=== PATIENT | male | born 1980 | race African-American/Black ===

== ENCOUNTER 2017-06-14 14:02 | Emergency (ER) | payer MEDICAID ==
[~2017-06-14] VITALS: Ht 177.8 cm; Wt 68.0 kg
[2017-06-14] MEDS ORDERED: KETOROLAC 30MG/ML VIAL IM ONE (16:30)
[2017-06-14] MEDS ORDERED: TRAMADOL 50MG TABLET PO ONE (16:30)
[2017-06-14 16:33] VITALS: BP 128/78
== END 2017-06-14 18:44 | disposition left against medical advice (07) ==
LOC: ER 14:02
DX: M25.551 Pain in right hip (principal); M79.1 Myalgia; M54.5 Low back pain; R07.9 Chest pain, unspecified; R51 Headache; F17.200 Nicotine dependence, unspecified, uncomplicated; R56.9 Unspecified convulsions
CPT/HCPCS: 71111; 73502; 96372; 99284; J1885

== ENCOUNTER 2017-12-04 12:59 | Emergency (ER) | payer MEDICAID ==
[~2017-12-04] VITALS: Ht 177.8 cm; Wt 68.0 kg
[2017-12-04 13:53] VITALS: BP 103/82
[2017-12-04] MEDS ORDERED: TETANUS, DIPHTHERIA, PERTUSSIS VAC/PF 0.5ML (>7YR OLD) IM ONE (14:00)
[2017-12-04] MEDS ORDERED: BACITRACIN ZINC OINT UDPKT TOP ONE (14:00)
[2017-12-04] MEDS ORDERED: LIDOCAINE HCL 1% 20ML VIAL (Pyxis) INJ MC ONE (14:00)
== END 2017-12-04 15:52 | disposition left against medical advice (07) ==
LOC: ER 12:59
DX: S61.217A Laceration without foreign body of left little finger without damage to nail, initial encounter (principal); Y93.89 Activity, other specified; W22.09XA Striking against other stationary object, initial encounter; Y92.89 Other specified places as the place of occurrence of the external cause; F17.200 Nicotine dependence, unspecified, uncomplicated; Y99.8 Other external cause status
CPT/HCPCS: 73140; 90471; 90715; 99284; J3490; X7700; Z7610

== ENCOUNTER 2022-02-17 17:03 | Emergency (ER) | payer MEDICAID, MEDICARE ==
[~2022-02-17] VITALS: Ht 172.7 cm; Wt 70.0 kg
[2022-02-17] MEDS ORDERED: ONDANSETRON HCL 4MG/2ML INJ IV ONE (17:45)
[2022-02-17] MEDS ORDERED: PANTOPRAZOLE SODIUM 40 MG/VIAL IV ONE (17:45)
[2022-02-17] MEDS ORDERED: MAGNESIUM/ALUMINUM HYDROXIDE/SIMETHICONE 30ML UDC PO ONE (17:45)
[2022-02-17] MEDS ORDERED: SODIUM CHLORIDE 0.9% 1,000 ML IV ONE (17:45)
[2022-02-17] MEDS ORDERED: VISCOUS LIDOCAINE 2% 15 ML UDC MM ONE (17:45)
[2022-02-17 17:52] LABS: CLARITY URINE CLEAR (CLEAR); COLOR URINE YELLOW (YELLOW); KETONES URINE TRACE (NEGATIVE); LEUKOCYTE ESTERASE URINE NEGATIVE (NEGATIVE); NITRITE URINE NEGATIVE (NEGATIVE); OCCULT BLOOD URINE NEGATIVE (NEGATIVE); PH URINE 6.5 (4.5-8.0); PROTEIN URINE TRACE (NEGATIVE); SPECIFIC GRAVITY URINE 1.022 (1.005-1.030); UROBILINOGEN URINE 0.2 E.U./dL (0.2-1.0)
[2022-02-17 17:52] LABS: BASOPHILS % 0.6 % (0.0-2.0); EOSINOPHILS % 0.5 % (0.0-5.0); HEMATOCRIT. 46.6 % (42.0-52.0); HEMOGLOBIN. 15.3 g/dL (14.0-18.0); LYMPHOCYTES % 13.3 % (20.0-50.0); MEAN CORPUSCULAR HEMOGLOBIN 27.5 pg (28.0-32.0); MEAN CORPUSCULAR VOLUME 83.8 fL (80.0-94.0); MEAN PLATELET VOLUME 7.8 fl (7.4-10.4); MONOCYTES % 9.3 % (2.0-8.0); NEUTROPHILS % 76.3 % (40.0-76.0); PLATELET 311 x1000/uL (130-400); RED BLOOD CELL COUNT 5.57 mill/uL (4.7-6.1); RED CELL DISTRIBUTION WIDTH 14.9 % (11.6-14.6)
[2022-02-17 17:56] LABS: CHLORIDE 102 mEq/L (98-107)
[2022-02-17 18:04] LABS: ETHANOL BLOOD < 10 mg/dL
[2022-02-17 18:05] LABS: *AMPHETAMINES SCREEN URINE NEGATIVE (NEGATIVE); *BARBITURATES SCREEN URINE NEGATIVE (NEGATIVE); *BENZODIAZEPINES SCREEN URINE NEGATIVE (NEGATIVE); *COCAINE SCREEN URINE NEGATIVE (NEGATIVE); CANNABINOID URINE SCREEN PRESUMTIVE POSITIVE (NEGATIVE); METHADONE URINE SCREEN NEGATIVE (NEGATIVE); OPIATES URINE SCREEN NEGATIVE (NEGATIVE); PHENCYCLIDINE URINE SCREEN NEGATIVE (NEGATIVE)
[2022-02-17] MEDS ORDERED: MAG355OR21 MT (19:06)
[2022-02-17] MEDS ORDERED: ONDA4TAB50 MT (19:06)
[2022-02-17 19:30] VITALS: BP 146/78
== END 2022-02-17 20:31 | disposition home or self-care (01) ==
LOC: ER 17:03
DX: K82.4 Cholesterolosis of gallbladder (principal); F19.90 Other psychoactive substance use, unspecified, uncomplicated; I10 Essential (primary) hypertension
CPT/HCPCS: 36415; 76705; 80053; 80305; 80320; 81003; 83690; 85025; 93005; 96361; 96374; 96375; 99285; C9113; J2405; J7030; G0480